=== PATIENT | male | born 1980 | race African-American/Black ===

== ENCOUNTER 2021-12-14 23:29 | Emergency (ER) | payer OTHER ==
[2021-12-14 23:38] VITALS: BP 132/84; PULSE 71; TEMP 97; BMI 30.4
[2021-12-15] MEDS ORDERED: DIPHTH,PERTUSS(ACELL),TET 0.5 ML DISP.SYRIN IM ONE ×2 (00:34→00:52)
== END 2021-12-15 01:32 | disposition home or self-care (01) ==
LOC: JER 23:29
PROC: 0HQGXZZ Repair Left Hand Skin, External Approach (ICD-10-PCS; principal; 2021-12-14)
PROC: 3E0234Z Introduction of Serum, Toxoid and Vaccine into Muscle, Percutaneous Approach (ICD-10-PCS; 2021-12-14)
DX: S61.412A Laceration without foreign body of left hand, initial encounter (principal); W26.0XXA Contact with knife, initial encounter
CPT/HCPCS: 12001-25; 90471; 90715; 99282-25